=== PATIENT | female | born 1970 | race Caucasian/White ===

== ENCOUNTER 2020-02-20 17:29 | Emergency (ER) | payer BC, SELFPAY ==
[2020-02-20 17:31] VITALS: BP 119/81; PULSE 77; RESP 14; TEMP 36.4; O2SAT 98; BMI 29.5
--- NOTE | 2020-02-20 18:20 | HMH.EDUTC ---
[facility] [place] Disposition Clinical Impression: Viral syndrome, Exposure to COVID-19 virus Right otitis media Qualifiers: Otitis media type: suppurative Chronicity: acute Recurrence: non-recurrent Spontaneous tympanic membrane rupture: without spontaneous rupture Qualified Code(s): H66.001 - Acute suppurative otitis media without spontaneous rupture of ear drum, right ear Disposition: Home, Self-Care Condition on Discharge: Good Instructions: DI for COVID-19 (Suspected or Confirmed ), Preventing the Spread of Coronavirus Discharge Instructions Additional Instructions: Drink plenty of fluids. Take tylenol for pain or fever. Return if you begin to have difficulty breathing. Follow up with your regular doctor. GO TO THE ER FOR ANY WORSENING SYMPTOMS Prescriptions: Ondansetron [Zofran 4mg ODT] 4 mg PO Q8HP PRN #12 tab.rapdis PRN Reason: Nausea Transmission Status: Received by [facility] Amoxicillin [Amoxicillin 500mg Tab] 500 mg PO TID 10 Days #30 tab Transmission Status: Received by [facility] Referrals: PCP,No [Primary Care Provider] - Time of Disposition: 18:29 Medical Decision Making - Medical Records Medical records reviewed: No: I reviewed the patient's medical records. - Darryl Inquiry Pt receiving controlled substance: No Vital Signs: 02/20/20 17:31 02/20/20 18:30 Temperature 97.5 F L 97.5 F L Temperature Source Oral Pulse Rate 77 Pulse Rate [Right] 77 Respiratory Rate 14 14 Blood Pressure 119/81 Blood Pressure [Right Arm] 119/81 Blood Pressure Mean [Right Arm] 93 02 Sat by Pulse Oximetry 98 Orders (Tests/Meds): ORDERS Category Date Time Status Covid-19 Nasal PCR Sendout P&C Routine Lab 02/20/20 18:00 Received [facility] [place] HPI - General Stated complaint: Nausea; diarrhea;headache Time Seen by Provider: 02/20/20 18:21 Description of Symptoms (Recalled from Triage Doc. by RN): pt c/o N/V/d ZAMBRANO and earache HEENT Symptoms (Recalled from RN notes): Yes Resp Symptoms (Recalled from RN notes): No Skin Symptoms (Recalled from RN notes): No MS Symptoms (Recalled from RN notes): No Functional Status (Recalled from RN notes): wnl - History of Present Illness Provider Complaint: She c/o nausea since yesterday. She has also been having a head ache and body aches. She denies any contact with someone with covid, but she works at [employer] here is [employer], so she is around lots of people. She also left ear pain. Her ear has been hurting intermittently for the past 1 week. She states that she sometimes does get ear infections and she thinks that she has one now, but she thinks something else is causing her head ache, nausea and body aches. - Related Data Previous Rx's Medication Instructions Recorded Amoxicillin [Amoxicillin 500mg Tab] 500 mg PO TID 10 Days #30 tab 02/20/20 Ondansetron [Zofran 4mg ODT] 4 mg PO Q8HP PRN #12 tab.rapdis 02/20/20 Allergies Allergy/AdvReac Type Severity Reaction Status Date / Time azithromycin [From Zithromax] Allergy Verified 02/20/20 18:14 clindamycin Allergy Verified 02/20/20 18:14 - Worker's Comp Is this a Worker's Comp case?: No Is this an H Worker's Comp?: No Is this a Hanh Worker's Comp?: No H History - Hepatitis A Screen Drug use history?: No High risk sexual behaviors?: No History of sexually transmitted infection?: No Currently employed?: No Childcare worker?: No Do you have indoor plumbing?: Yes Do you have electricity?: Yes Attestation statement:: This patient has been screened for Hepatitis A risk factors. I have reviewed the patient's past medical history: Yes ROS Obtained: Yes All systems reviewed & no additional complaints - Constitutional Constitutional: Reports system reviewed and no additional complaints, except as docu - Eyes Eyes: Reports system reviewed and no additional complaints, except as docu - ENT Ears, Nose, Mouth, and Throat: Reports system reviewed and no additi
[2020-02-20 18:30] VITALS: BP 119/81; PULSE 77; RESP 14; TEMP 36.4; O2SAT 98
[2020-02-22 11:36] LABS: Covid-19 Nasal PCR Sendout P&C NEGATIVE
== END 2020-02-20 18:39 | disposition home or self-care (01) ==
PROVIDERS: Emergency Provider Nurse Practitioner Family
DX: Z20.822 Contact with and (suspected) exposure to COVID-19 (principal); H66.001 Acute suppurative otitis media without spontaneous rupture of ear drum, right ear; B34.9 Viral infection, unspecified
CPT/HCPCS: 99202; G0463; U0004

== ENCOUNTER 2020-08-20 11:45 | Emergency (ER) | payer BC, SELFPAY ==
[2020-08-20 12:39] VITALS: BP 118/80; PULSE 86; RESP 18; TEMP 37.3; O2SAT 98; BMI 29.5
--- NOTE | 2020-08-20 12:50 | HMH.EDUTC ---
[facility] [place] Disposition Clinical Impression: Exposure to COVID-19 virus Disposition: Home, Self-Care Condition on Discharge: Good Instructions: Preventing the Spread of Coronavirus Discharge Instructions Additional Instructions: Drink plenty of fluids. Take tylenol for pain or fever. Return if you begin to have difficulty breathing. Follow up with your regular doctor. GO TO THE ER FOR ANY WORSENING SYMPTOMS Prescriptions: Ondansetron [Zofran 4mg ODT] 4 mg PO Q8HP PRN #12 tab.rapdis PRN Reason: Nausea Transmission Status: Received by [facility] Benzonatate [Tessalon Perle 100mg Cap] 100 mg PO TIDP PRN #30 cap PRN Reason: Cough Transmission Status: Received by [facility] Referrals: Provider,Referral, MD [Primary Care Provider] - Forms: Work/School Release Time of Disposition: 12:58 Medical Decision Making - Medical Records Medical records reviewed: No: I reviewed the patient's medical records. - Darryl Inquiry Pt receiving controlled substance: No Vital Signs: 08/20/20 12:39 08/20/20 13:00 Temperature 99.1 F 99.1 F Temperature Source Oral Pulse Rate 886 H Pulse Rate [Left] 86 Respiratory Rate 18 18 Blood Pressure 118/80 Blood Pressure [Right Arm] 118/80 Blood Pressure Mean [Right Arm] 92 02 Sat by Pulse Oximetry 98 - Lab Data Lab Results 08/20/20 12:56: Chlamy pneumoniae PCR Not detected, Adenovirus (PCR) Not detected, B. pertussis DNA (PCR) Not detected, Coronavirus OC43 (PCR) Not detected, Coronavirus HKU1 (PCR) Not detected, Coronavirus 229E (PCR) Not detected, SARS-CoV-2 (PCR) Detected A, Coronavirus NL63 (PCR) Not detected, Human Metapneumovir PCR Not detected, Influenza A (H1) PCR Not detected, Influ A (H1N1/09) PCR Not detected, Influenza A (H3) PCR Not detected, Influenza Type A (PCR) Not detected, Influenza Type B (PCR) Not detected, M. pneumoniae (PCR) Not detected, Parainfluenza 1 (PCR) Not detected, Parainfluenza 2 (PCR) Not detected, Parainfluenza 3 (PCR) Not detected, Parainfluenza 4 (PCR) Not detected, RSV (PCR) Not detected, Entero/Rhino (PCR) Not detected [facility] [place] HPI - General Stated complaint: Covid test Time Seen by Provider: 08/20/20 12:51 - History of Present Illness Provider Complaint: She states that she was exposed to covid-19 4 days ago. She had felt fine, but last night she had chilling. At this time she is having some mild nausea and a dry cough at times. - Related Data Previous Rx's Medication Instructions Recorded Amoxicillin [Amoxicillin 500mg Tab] 500 mg PO TID 10 Days #30 tab 02/20/20 Ondansetron [Zofran 4mg ODT] 4 mg PO Q8HP PRN #12 tab.rapdis 02/20/20 Benzonatate [Tessalon Perle 100mg 100 mg PO TIDP PRN #30 cap 08/20/20 Cap] Ondansetron [Zofran 4mg ODT] 4 mg PO Q8HP PRN #12 tab.rapdis 08/20/20 Allergies Allergy/AdvReac Type Severity Reaction Status Date / Time azithromycin [From Zithromax] Allergy Verified 02/20/20 18:14 clindamycin Allergy Verified 02/20/20 18:[address] [facility] History - Hepatitis A Screen Attestation statement:: This patient has been screened for Hepatitis A risk factors. I have reviewed the patient's past medical history: Yes ROS Obtained: Yes All systems reviewed & no additional complaints - Constitutional Constitutional: Reports system reviewed and no additional complaints, except as docu - Eyes Eyes: Reports system reviewed and no additional complaints, except as docu - ENT Ears, Nose, Mouth, and Throat: Reports system reviewed and no additional complaints, except as docu - Cardiovascular Cardiovascular: Reports system reviewed and no additional complaints, except as docu - Respiratory Respiratory: Reports system reviewed and no additional complaints, except as docu - Gastrointestinal Gastrointestingal: Reports: system reviewed and no additional complaints, except as docu Physical Exam - General General appearance: alert, in no apparent distress - Head
[2020-08-20 13:00] VITALS: BP 118/80; PULSE 886; RESP 18; TEMP 37.3
[2020-08-20 13:04] LABS: Adenovirus,PCR Not Detected (NotDetected); Bordetella Pertussis Not Detected (NotDetected); Chlamydophila Pneumoniae, PCR Not Detected (NotDetected); Coronavirus 229E Not Detected (NotDetected); Coronavirus NL63 Not Detected (NotDetected); Coronavirus OC43 Not Detected (NotDetected); Coronovirus HKU1,PCR Not Detected (NotDetected); Human Metapneumovirus Not Detected (NotDetected); Influenza A, PCR Not Detected (NotDetected); Influenza AH1, 2009 Not Detected (NotDetected); Influenza AH1, PCR Not Detected (NotDetected); Influenza AH3,PCR Not Detected (NotDetected); Influenza B, PCR Not Detected (NotDetected); Mycoplasma Pneumoniae, PCR Not Detected (NotDetected); Parainfluenza 1, PCR Not Detected (NotDetected); Parainfluenza 2, PCR Not Detected (NotDetected); Parainfluenza 3, PCR Not Detected (NotDetected); Parainfluenza 4, PCR Not Detected (NotDetected); Respiratory Syncytial Virus Not Detected (NotDetected); Rhinovirus/Enterovirus Not Detected (NotDetected)
[2020-08-20 14:58] LABS: Coronavirus 19, PCR Detected (NotDetected)
--- NOTE | 2020-08-20 18:25 | PC.NURSE ---
relayed covid positive result to pt.
== END 2020-08-20 13:04 | disposition home or self-care (01) ==
PROVIDERS: Emergency Provider Nurse Practitioner Family
DX: U07.1 COVID-19 (principal); R05 Cough; R11.0 Nausea
CPT/HCPCS: 87581; 87633; 87798; 99202; G0463

== ENCOUNTER 2020-08-30 11:56 | Emergency (ER) | payer BC, SELFPAY ==
[2020-08-30 11:57] VITALS: BP 126/81; PULSE 71; RESP 16; TEMP 36.8; O2SAT 98; BMI 28.8
--- NOTE | 2020-08-30 13:16 | HMH.EDUTC ---
[facility] [place] Clinical Impression: Encounter for laboratory testing for COVID-19 virus Right otitis media Qualifiers: Otitis media type: unspecified Qualified Code(s): H66.91 - Otitis media, unspecified, right ear Disposition: Home, Self-Care Condition on Discharge: Good Instructions: DI for COVID-19 (Suspected or Confirmed ), COVID-19: Testing and Tracing, Preventing the Spread of Coronavirus Discharge Instructions Additional Instructions: You were tested for today for COVID19 your test result should be back in the next 24-48 hours, you may call to the [facility] to see if your test results are back in the next 48 hours [phone] [facility] hours are 9am-9pm You was given a handout with instructions for Self Quarantine and Self isolation for while you wait on test results and what to do if they are positive If you are positive the Health Dept will be contacting you also Prescriptions: Amoxicillin [Amoxicillin 500mg Cap] 500 mg PO TID #30 cap Transmission Status: Pending to [facility] Referrals: Provider,Referral, [Primary Care Provider] - As needed Time of Disposition: 13:32 Medical Decision Making - Darryl Inquiry Pt receiving controlled substance: No Darryl was queried for this patient: No Vital Signs: 08/30/20 11:57 Temperature 98.3 F Temperature Source Oral Pulse Rate [Right] 71 Respiratory Rate 16 Blood Pressure [Right Arm] 126/81 Blood Pressure Mean [Right Arm] 96 Blood Pressure Source [Right Arm] Automatic Cuff Blood Pressure Position [Right Arm] Sitting 02 Sat by Pulse Oximetry 98 Oxygen Delivery Method Room Air Orders (Tests/Meds): ORDERS Category Date Time Status Covid-19 Nasal PCR ([facility]) Routine Lab 08/30/20 12:52 Received [facility] [place] - General Stated complaint: covid test Time Seen by Provider: 08/30/20 13:16 Mode of Arrival: Ambulatory Source of Information: Patient Limitations: No Limitations Description of Symptoms (Recalled from Triage Doc. by RN): pt tested postive on the and her employer wants her retested today HEENT Symptoms (Recalled from RN notes): No Resp Symptoms (Recalled from RN notes): No Skin Symptoms (Recalled from RN notes): No MS Symptoms (Recalled from RN notes): No Functional Status (Recalled from RN notes): na - History of Present Illness Provider Complaint: Patient states that she tested positive for COVID a couple weeks ago but her employer is making her get tested again States that also she has been having pain in her right ear and wanted to get it checked States that it has continued to get worse over the last week - Related Data Previous Rx's Medication Instructions Recorded Amoxicillin [Amoxicillin 500mg Tab] 500 mg PO TID 10 Days #30 tab 02/20/20 Ondansetron [Zofran 4mg ODT] 4 mg PO Q8HP PRN #12 tab.rapdis 02/20/20 Benzonatate [Tessalon Perle 100mg 100 mg PO TIDP PRN #30 cap 08/20/20 Cap] Ondansetron [Zofran 4mg ODT] 4 mg PO Q8HP PRN #12 tab.rapdis 08/20/20 Amoxicillin [Amoxicillin 500mg 500 mg PO TID #30 cap 08/30/20 Cap] Allergies Allergy/AdvReac Type Severity Reaction Status Date / Time azithromycin [From Zithromax] Allergy Verified 02/20/20 18:14 clindamycin Allergy Verified 02/20/20 18:14 - Worker's Comp Is this a Worker's Comp case?: No [facility] History - Hepatitis A Screen Drug use history?: No High risk sexual behaviors?: No History of sexually transmitted infection?: No Currently employed?: No Childcare worker?: No Do you have indoor plumbing?: Yes Do you have electricity?: Yes Attestation statement:: This patient has been screened for Hepatitis A risk factors. I have reviewed the patient's past medical history: Yes ROS Obtained: Yes All systems reviewed & no additional complaints, Yes Systems reviewed as appropriate & no additional complaints - Constitutional Constitutional: Reports system reviewed and no additional complaints, except as docu, Reports fever(s) - ENT Ears, Nose,
[2020-08-30 13:46] VITALS: BP 124/84; PULSE 70; RESP 16; TEMP 36.9; O2SAT 98
--- NOTE | 2020-08-30 16:59 | PC.NURSE ---
PT NOTIFIED OF POSITIVE COVID RESULT
== END 2020-08-30 13:47 | disposition home or self-care (01) ==
PROVIDERS: Emergency Provider Nurse Practitioner
DX: U07.1 COVID-19 (principal); H66.91 Otitis media, unspecified, right ear
CPT/HCPCS: 99202; G0463; U0003

== ENCOUNTER 2022-05-07 14:20 | Emergency (ER) | payer OTHER, SELFPAY ==
--- NOTE | 2022-05-07 14:47 | XR_ITS ---
FINAL REPORT CLINICAL HISTORY: fall today, anterior redness, pain COMPARISON: none FINDINGS: AP, lateral and oblique views of the left knee were obtained. There is no prior exam for comparison. There is no acute osseous abnormality of the left knee. The joint space is preserved. The soft tissues are normal. There is no joint effusion. IMPRESSION: No acute osseous abnormality of the left knee. Reviewed, Interpreted and Dictated by Billie Galvan MD Transcribed by Renu Gay Authenticated and [facility]
--- NOTE | 2022-05-07 14:55 | EXP.UTC ---
Discharge Plan Disposition Patient Disposition: Home, Self-Care Condition: Good Prescriptions Prescriptions: New ibuprofen [IBU] 800 mg tablet 800 mg PO Q8HP PRN (Reason: Moderate Pain) Qty: 30 0RF No Action amoxicillin 500 MG tablet 500 mg PO TID 10 Days Qty: 30 0RF ondansetron 4 MG tablet,disintegrating 4 mg PO Q8HP PRN (Reason: Nausea) Qty: 12 0RF amoxicillin 500 MG capsule 500 mg PO TID Qty: 30 0RF ondansetron 4 MG tablet,disintegrating 4 mg PO Q8HP PRN (Reason: Nausea) Qty: 12 0RF benzonatate 100 MG capsule 100 mg PO TIDP PRN (Reason: Cough) Qty: 30 0RF Referrals Follow up/Referrals: George Erazo DO [Staff Physician] - See instructions Provider,Referral, [Primary Care Provider] - See instructions Activity Restrictions/Add. Instructions Additional Instructions/Restrictions: Rest the extremity, apply ice for 15 minutes as tolerated three or four times per day, Wear the mustapha wrap for compression, Elevate the extremity as tolerated while you are resting. Take ibuprofen for pain. I sent in a prescription to your pharmacy. Follow up with Dr. Erazo (orthopedics). I put in a referral but you need to call his office and schedule an appointment. Follow up with your regular doctor. GO TO THE ER FOR ANY WORSENING SYMPTOMS Clinical Impressions Clinical Impression: Left knee pain, Contusion of knee, left, Contusion of forehead Stand Alone Forms Stand Alone Forms: Work/School Release Instructions Patient Instructions: Contusion, DI for Contusion Discharge ED Provider: Srinivasan Ivey [facility] General Stated complaint: WC 05/07 Left knee pain Time Seen by Provider: 05/07/22 14:55 History of Present Illness Provider Complaint: She states that she tripped over a fork lift at work and came down on her left knee. She also hit her head on the ground when this happened. She denies any loss of consciousness and head pain at this time. She c/o left knee pain that seems centered in her knee cap. Related Data Previous Rx's Medication Instructions Recorded amoxicillin 500 mg tablet 500 mg PO TID 10 days #30 tabs 02/20/20 ondansetron 4 mg disintegrating 4 mg PO Q8HP PRN Nausea ##12 02/20/20 tablet benzonatate 100 mg capsule 100 mg PO TIDP PRN Cough #30 caps 08/20/20 ondansetron 4 mg disintegrating 4 mg PO Q8HP PRN Nausea ##12 08/20/20 tablet amoxicillin 500 mg capsule 500 mg PO TID #30 caps 08/30/20 ibuprofen 800 mg tablet (IBU) 800 mg PO Q8HP PRN Moderate Pain 05/07/22 #30 tabs Allergies Allergy/AdvReac Type Severity Reaction Status Date / Time azithromycin [From Zithromax] Allergy Verified 05/07/22 14:59 clindamycin Allergy Verified 05/07/22 14:59 [facility] Disclaimer: The information contained in this section may have been updated after the patient was seen, as this information can be updated by other users. Social History Smoking Status: Never smoker alcohol intake: never current occupational status: employed Travel in the last 8 weeks: None ROS Obtained: Yes All systems reviewed & no additional complaints except as documented Constitutional Constitutional: Denies chills and Denies fever(s) Eyes Eyes: Denies eye discharge ENT Ears, Nose, Mouth, and Throat: Denies dizziness, Denies otalgia and Denies sore throat Cardiovascular Cardiovascular: Denies chest pain Respiratory Respiratory: Denies shortness of breath, Denies chest congestion, Denies cough, Denies stridor and Denies wheezing Gastrointestinal Gastrointestingal: Denies nausea or vomiting Musculoskeletal Musculoskeletal: Reports as per HPI Integumentary/Breasts Skin/Breast: Denies rash Neurologic Neurologic: Denies dizziness and Denies paresthesias Allergic/Immunologic Allergic/Immunologic: Denies wheezing Physical Exam General General appearance: alert and in no apparent distress Head Head exam: atraumatic, normocephalic
[2022-05-07 14:57] VITALS: BP 140/88; PULSE 96; RESP 16; TEMP 36.8; O2SAT 97; BMI 28.0
[2022-05-07 16:48] VITALS: BP 140/88; PULSE 96; RESP 16; TEMP 36.8
== END 2022-05-07 17:02 | disposition home or self-care (01) ==
PROVIDERS: Emergency Provider Nurse Practitioner Family
DX: S80.02XA Contusion of left knee, initial encounter (principal); S00.83XA Contusion of other part of head, initial encounter; W01.0XXA Fall on same level from slipping, tripping and stumbling without subsequent striking against object, initial encounter
CPT/HCPCS: 73562; 99212; 99214; G0463

== ENCOUNTER 2022-10-23 20:55 | Emergency (ER) | payer BC, SELFPAY ==
[2022-10-23 20:56] VITALS: BP 177/87; PULSE 98; RESP 18; TEMP 36.7; O2SAT 98; BMI 28.6
--- NOTE | 2022-10-23 21:35 | CT_ITS ---
PROCEDURE INFORMATION: Exam: CT Abdomen And Pelvis Without Contrast Exam date and time: 10/23/2022 10:16 PM Age: 51 years old Clinical indication: Abdominal pain; Additional info: R flank pain rad to groin TECHNIQUE: Imaging protocol: Computed tomography of the abdomen and pelvis without contrast. Radiation optimization: All CT scans at this facility use at least one of these dose optimization techniques: automated exposure control; mA and/or kV adjustment per patient size (includes targeted exams where dose is matched to clinical indication); or iterative reconstruction. REPORTING DATA: Count of CT and Cardiac NM exams in prior 12 months: This patient has received 0 known CTs and 0 known cardiac nuclear medicine studies in the 12 months prior to the current study. COMPARISON: No relevant prior studies available. FINDINGS: Lungs: A 6 mm nodule noted in the anterolateral right lower lobe on axial image 3. Additional 5 mm nodule noted in the anterolateral right lower lobe on image 7. Liver: Normal. No mass. Gallbladder and bile ducts: Normal. No calcified stones. No ductal dilation. Pancreas: Severe atrophy of the pancreatic tail and a portion of the pancreatic body. Remainder of the pancreas unremarkable. Spleen: Normal. No splenomegaly. Adrenal glands: Normal. No mass. Kidneys and ureters: A 11 mm cyst projects off of the inferolateral right kidney. No follow-up of the lesion advised. Mild right-sided hydroureter with periureteral stranding is noted extending to the ureterovesical junction. No obstructing stone identified. Kidneys and ureters otherwise unremarkable with no obstructing stones or uropathy. Stomach and bowel: Multiple diverticula of the sigmoid and descending colon. Colon otherwise unremarkable with no evidence of diverticulitis. GI tract structures otherwise unremarkable with no evident wall thickening allowing for incomplete distention. Appendix: No evidence of appendicitis. Intraperitoneal space: Unremarkable. No free air. No significant fluid collection. Vasculature: Unremarkable. No abdominal aortic aneurysm. Lymph nodes: Unremarkable. No enlarged lymph nodes. Urinary bladder: Unremarkable as visualized. Reproductive: Status post hysterectomy. Bones/joints: Unremarkable. No acute fracture. Soft tissues: Unremarkable. IMPRESSION: 1. Mild right-sided hydro ureter with Tamica ureteral stranding . Findings might be related to a recently passed stone. Other occult obstructing process not totally excluded. Findings might also be due to urinary tract infection. Consider follow-up to ensure resolution. 2. Severe atrophy of the pancreatic tail and a portion of the pancreatic body of uncertain etiology. 3. Incidental right lower lobe nodules largest measuring 6 mm. For patients at low risk (minimal or absent history of smoking and of other known risk factors), recommend CT Chest at 3-6 months, then consider CT Chest at 18-24 months. For patients at high risk (history of smoking or of other known risk factors), recommend CT Chest at 3-6 months, then CT Chest at 18-24 months. (Reference: Holly) COMMENTS: Consistent with the [employer]'s Incidental Findings Committee white paper (J Am Nirmala Radiol 2018): Any incidental renal lesion less than 1 cm or classified as too small to characterize, or any incidental cystic renal lesion characterized as simple-appearing, is likely benign. No follow-up imaging is recommended for these lesions per consensus recommendations based on imaging criteria. REFERENCES: Holly Russell, et al. Guidelines for Management of Incidental Pulmonary Nodules Detected on CT Images: From the [employer]ner Society 2017. Radiology. 2017;284(1):228-243.
[2022-10-23 21:42] LABS: Chloride 99 mmol/L (98-107)
[2022-10-23 21:43] LABS: Potassium 3.9 mmoL/L (3.5-5.1); Sodium 136 mmol/L (136-145)
[2022-10-23 21:45] LABS: Alanine Aminotransferase 22 U/L (12-78); Albumin Level 4.4 g/dl (3.5-5.0); Albumin/Globulin Ratio 1.2 (1.1-1.8); Alkaline Phosphatase 120 U/L (38-126); Anion Gap 13.9 mEq/L (5-15); Aspartate Amino Transferase 26 U/L (14-36); Basophils # 0.1 K/mm3 (0-0.2); Basophils % 0.6 % (0.1-2.0); Bilirubin,Total 0.5 mg/dl (0.2-1.3); Blood Urea Nitrogen 17 mg/dl (7-17); Carbon Dioxide 27 mmol/L (22.0-30.0); Creatinine Clearance Estimated 113 mL/min (50-200); Eosinophils % 0.3 % (0.1-12.0); Estimated Glomerular Filt Rate 75 ml/min (>60); GFR (African American) 91 ML/MIN (>60); Globulin 3.6 g/dL (1.3-3.2); Glucose 111 mg/dl (74-100); Hematocrit 43.8 % (37.0-47.0); Hemoglobin 14.2 g/dL (12.2-16.2); Lymphocytes # 1.4 K/mm3 (0.7-4.5); Lymphocytes % 7.9 % (10-50); Mean Corpuscular HGB Conc 32.4 g/dL (31.8-35.4); Mean Corpuscular Hemoglobin 27.3 pg (27.0-31.2); Mean Corpuscular Volume 84.2 fl (81-99); Mean Platelet Volume 9.1 fl (7.4-10.4); Monocytes # 0.7 K/mm3 (0.1-1.0); Monocytes % 3.9 % (1.7-9.3); Neutrophils % 87.4 % (37.0-80.0); Platelet Count 357 K/mm3 (142-424); Red Cell Distribution Width 13.7 % (11.5-17.5); White Blood Count 17.2 K/mm3 (4.8-10.8)
[2022-10-23 21:46] LABS: Calcium 10.2 mg/dl (8.4-10.2)
[2022-10-23 21:50] LABS: MANUAL DIFFERENTIAL MANUAL DIFFERENTIAL (MANUAL DIFF)
--- NOTE | 2022-10-23 21:52 | HMH.EDGENADL ---
Discharge Plan Disposition Patient Disposition: Home, Self-Care Condition: Good Prescriptions Prescriptions: New cefdinir 300 mg capsule 300 mg PO BID 10 Days Qty: 20 0RF ondansetron 4 mg tablet,disintegrating 4 mg PO Q8H PRN (Reason: nausea and vomiting) 4 Days Qty: 12 0RF No Action amoxicillin 500 MG tablet 500 mg PO TID 10 Days Qty: 30 0RF ondansetron 4 MG tablet,disintegrating 4 mg PO Q8HP PRN (Reason: Nausea) Qty: 12 0RF amoxicillin 500 MG capsule 500 mg PO TID Qty: 30 0RF ibuprofen [IBU] 800 mg tablet 800 mg PO Q8HP PRN (Reason: Moderate Pain) Qty: 30 0RF ondansetron 4 MG tablet,disintegrating 4 mg PO Q8HP PRN (Reason: Nausea) Qty: 12 0RF benzonatate 100 MG capsule 100 mg PO TIDP PRN (Reason: Cough) Qty: 30 0RF Referrals Follow up/Referrals: Provider,Referral, MD [Primary Care Provider] - See instructions Activity Restrictions/Add. Instructions Additional Instructions/Restrictions: You were evaluated in the emergency department today. 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 Complete your full course of antibiotics. Take Tylenol and ibuprofen at home as needed for pain. Return to the emergency department for any new or worsening symptoms, such as fever, intractable vomiting, or worsening pain. Clinical Impressions Clinical Impression: Pyelonephritis Instructions Patient Instructions: DI for Kidney Infection, DI for Acute Abdominal Pain Discharge ED Provider: Ambreen Franco General Adult HPI General Chief complaint: Abdominal Pain Stated complaint: back pain, vomiting, chills Time Seen by Provider: 10/23/22 21:19 Mode of Arrival: Ambulatory Source of Information: Patient Limitations: No Limitations Description of Symptoms (Recalled from ER Triage Doc. by RN): Patient reports right flank pain that radiates to right lower quadrant. Patient reports she was just treated for UTI and felt better for a few days and now pain has returned. History of Present Illness HPI narrative: This patient is a 51-year-old female who reports a history of hypothyroidism presenting to the emergency department for evaluation with concern for right flank pain radiating around to her groin. She states that she was diagnosed with a UTI several weeks ago and completed treatment. She was initially feeling better, however she states days ago it came back with a vengeance. Today, she developed unbearable right flank pain radiating around to her groin that is severe. She also notes chills, nausea, and vomiting. She did not take her temperature at home. She denies any changes in bowel movements, but notes significant dysuria, frequency, urgency, and cloudy urine. Related Data Previous Rx's Medication Instructions Recorded amoxicillin 500 mg tablet 500 mg PO TID 10 days #30 tabs 02/20/20 ondansetron 4 mg disintegrating 4 mg PO Q8HP PRN Nausea ##12 02/20/20 tablet benzonatate 100 mg capsule 100 mg PO TIDP PRN Cough #30 caps 08/20/20 ondansetron 4 mg disintegrating 4 mg PO Q8HP PRN Nausea ##12 08/20/20 tablet amoxicillin 500 mg capsule 500 mg PO TID #30 caps 08/30/20 ibuprofen 800 mg tablet (IBU) 800 mg PO Q8HP PRN Moderate Pain 05/07/22 #30 tabs cefdinir 300 mg capsule 300 mg PO BID 10 days #20 caps 10/23/22 ondansetron 4 mg disintegrating 4 mg PO Q8H PRN nausea and 10/23/22 tablet vomiting 4 days #12 tabs Allergies Allergy/AdvReac Type Severity Reaction Status Date / Time azithromycin [From Zithromax] Allergy Verified 05/07/22 14:59 clindamycin Allergy Verified 05/07/22 14:59 [facility] Disclaimer: The information contained in this section may have been updated after the patient was seen, as this information can be updated by other users. Social History Smoking Status: Never smoker alcohol intake: never current occupational status: employed Travel in the last 8 weeks: No
[2022-10-23 21:54] LABS: Microscopic, Urine URINE MICROSCOPIC (MICROSCOPIC)
[2022-10-23 22:01] LABS: Appearance,Urine CLOUDY (Clear); Bilirubin,Urine Negative (Negative); Blood, Urine 3+ (Negative); Color,Urine YELLOW (Yellow); Glucose,Urine (UA) Negative (Negative); Ketones,Urine Negative (Negative); Leukocyte Esterase,Urine 3+ (Negative); Nitrate,Urine POSITIVE (Negative); Protein,Urine 2+ (Negative); Specific Gravity, Urine 1.025 (1.005-1.030); Urobilinogen,Urine 0.2 EU/dl (0.2)
[2022-10-23 22:05] LABS: Lymphocytes % 7 % (10-50); Monocytes % 1 % (2-9); Neutrophils % 92 % (42-76); Platelet Estimate Normal; RBC Morphology Normal; Total Cells Counted 100
[2022-10-23 22:16] LABS: Bacteria,Urine 2+ /lpf; WBC,Urine TNTC #/hpf (0-3)
[2022-10-23 23:25] LABS: Lactic Acid 0.8 mmol/L (0.7-2.1)
[2022-10-23 23:35] VITALS: BP 156/72; PULSE 91; RESP 18; TEMP 36.6; O2SAT 98
--- NOTE | 2022-10-28 16:33 | PC.NURSE ---
Reviewed pt urine culture result. consulted David who stated the pt is on the appropriate treatment
== END 2022-10-23 23:40 | disposition home or self-care (01) ==
PROVIDERS: Emergency Provider Emergency Medicine
DX: N12 Tubulo-interstitial nephritis, not specified as acute or chronic (principal); R10.31 Right lower quadrant pain
CPT/HCPCS: 74176; 80053; 81001; 83605; 85007; 85025; 87040; 87086; 87088; 87186; 96361; 96365; 96375; 99285; J0131; J0696; J2405

== ENCOUNTER 2023-04-01 08:00 | Outpatient (CLI) | payer BC, SELFPAY ==
--- NOTE | 2023-04-01 08:19 | CT_ITS ---
FINAL REPORT TECHNIQUE: Routine axial images were obtained from the lung apices to below the diaphragm following IV contrast administration. Individualized dose reduction techniques using automated exposure control or adjustment of the mA and/or kV according to the patient size were employed. CLINICAL HISTORY: 6MM RLL PULMONARY NODULE COMPARISON: 10/23/2022 FINDINGS: Mediastinal vascularity is well-opacified. There is no mediastinal mass or adenopathy. No pleural or pericardial effusion is seen. Again noted is a nodule in the anterior right lower lobe measuring 6 mm best seen on image 55 of series 2, stable. There is mild airspace or irregular density anterior right lower lobe best seen on image 54 probably postinflammatory. Limited images of the upper abdomen demonstrate a benign cyst in the spleen. IMPRESSION: Stable nodule at the right lung base. Follow-up in 1 year per Fleischner criteria.. Reviewed, Interpreted and Dictated by Raghu Willis MD Transcribed by Renu Gay Authenticated and [facility]
[2023-04-01] MEDS: IOPAMIDOL-370 (76%);100ML BOTTLE 75 ML IV (09:27)
[2023-04-01] MEDS: SODIUM CHLORIDE 0.9% 10ML SYR (RAD ONLY) 10 ML IV (09:27)
== END 2023-04-01 23:59 ==
PROVIDERS: Visit Provider Family Medicine
DX: R91.1 Solitary pulmonary nodule (principal)
CPT/HCPCS: 71260; Q9967